=== PATIENT | female | born 1970 | race Caucasian/White ===

== ENCOUNTER 2018-09-22 14:01 | Observation (INO) | payer BC ==
--- NOTE | 2018-09-22 14:07 | PDOC ---
History of Present Illness - General Chief Complaint: Chest Pain Stated Complaint: Chest Pain Time Seen by Provider: 09/22/18 14:07 - History of Present Illness Initial Comments: 09/22/18 14:17 Ms. Sharma is a 48 yo female w/ no significant pmh who presents for evaluation of 24 hour history of chest pain severely worsened today. Patient reports it is midline and worsened with deep inspiration. Patient also reports a 1 month history of dry cough however denies any fever, chills, or other associated symptoms. Pain is radiating to her back. The patient denies shortness of breath, headache and dizziness. Denies fever, chills, nausea, vomit, diarrhea and constipation. Denies dysuria, frequency, urgency and hematuria. Past History - Past Medical History Allergies/Adverse Reactions: Allergies Allergy/AdvReac Type Severity Reaction Status Date / Time No Known Allergies Allergy Verified 09/22/18 14:07 Home Medications: Ambulatory Orders NK [No Known Home Medication] 09/22/18 Review of Systems - Review of Systems Comments:: 09/22/18 14:19 GENERAL/CONSTITUTIONAL: No fever or chills. No weakness. HEAD, EYES, EARS, NOSE AND THROAT: No change in vision. No ear pain or discharge. No sore throat. CARDIOVASCULAR: Pain as described. No shortness of breath RESPIRATORY: No cough, wheezing, or hemoptysis. GASTROINTESTINAL: No nausea, vomiting, diarrhea or constipation. GENITOURINARY: No dysuria, frequency, or change in urination. MUSCULOSKELETAL: No joint or muscle swelling or pain. No neck or back pain. SKIN: No rash NEUROLOGIC: No headache, vertigo, loss of consciousness, or change in strength/ sensation. ENDOCRINE: No increased thirst. No abnormal weight change HEMATOLOGIC/LYMPHATIC: No anemia, easy bleeding, or history of blood clots. ALLERGIC/IMMUNOLOGIC: No hives or skin allergy. *Physical Exam - Physical Exam Comments: 09/22/18 14:20 GENERAL: Awake, alert, and fully oriented, in no acute distress HEAD: No signs of trauma, normocephalic, atraumatic EYES: PERRLA, EOMI, sclera anicteric, conjunctiva clear ENT: Auricles normal inspection, hearing grossly normal, nares patent, oropharynx clear without exudates. Moist mucosa NECK: Normal ROM, supple, no lymphadenopathy, JVD, or masses LUNGS: No distress, speaks full sentences, clear to auscultation bilaterally HEART: Regular rate and rhythm, normal S1 and S2, no murmurs, rubs or gallops, peripheral pulses normal and equal bilaterally. ABDOMEN: Soft, nontender, normoactive bowel sounds. No guarding, no rebound. No masses EXTREMITIES: Normal inspection, Normal range of motion, no edema. No clubbing or cyanosis. NEUROLOGICAL: Cranial nerves II through XII grossly intact. Normal speech, normal gait, no focal sensorimotor deficits SKIN: Warm, Dry, normal turgor, no rashes or lesions noted. Heart Score/ECG Review - History History: Highly suspicious - Electrocardiogram EKG: Non specific repolarization disturbance - Age Age: 45-65 - Risk Factors Based on the list above the patient has:: No risk factors known - Troponin Troponin: </= normal limit - Score Heart Score - Total: 4 ED Treatment Course - LABORATORY CBC & Chemistry Diagram: 09/22/18 14:35 09/22/18 14:35 Medical Decision Making - Medical Decision Making 09/22/18 16:23 Ms. Sharma is a 48 yo female w/ pmh as described who presents for evaluation of symptoms of chest pain concerning for ACS vs. PE vs. MSK pain. Patient evaluated with cardiac labs. Bedside US revealed no acute process. Patient will be evaluated with Chest CTA for r/o PE given pleurisy and labs grossly wnl. ASA given prophylactically. 09/22/18 18:42 CT negative for PE or other acute process. EKG normal sinus w/ RBBB. Labs grossly wnl. 2nd troponin pending. Patient will be admitted for cardiac evaluation. Laboratory Results - last 24 hr 09/22/18 09/22/18 09/22/18 14:35 14:35 14:35 WBC 6.4 RBC 4.50 Hgb 9.5 L Hct 30.3 L MCV 67.3 L MCH 21.1 L MCHC 31.4 L RDW 19.7 H Plt Count 318 MPV 9.5 Absolute Neuts (auto) 4.5 Neutrophils % 70.6 Lymphocytes % 21.1 Monocytes % 5.3 Eosinophils % 2.6 Basophils % 0.4 Nucleated RBC % 0 PT with INR 11.10 INR 0.94 PTT (Actin FS) 29.5 Sodium 142 Potassium 4.3 Chloride 109 H Carbon Dioxide 26 Anion Gap 7 L BUN 13 Creatinine 0.6 Creat Clearance w eGFR 105.82 Random Glucose 105 Calcium 8.8 Total Bilirubin 0.2 AST 17 ALT 20 Alkaline Phosphatase 113 Creatine Kinase 117 Troponin I < 0.02 Total Protein 6.9 Albumin 3.3 L Blood Type Antibody Screen 09/22/18 15:01 WBC RBC Hgb Hct MCV MCH MCHC RDW Plt Count MPV Absolute Neuts (auto) Neutrophils % Lymphocytes % Monocytes % Eosinophils % Basophils % Nucleated RBC % PT with INR INR PTT (Actin FS) Sodium Potassium Chloride Carbon Dioxide Anion Gap BUN Creatinine Creat Clearance w eGFR Random Glucose Calcium Total Bilirubin AST ALT Alkaline Phosphatase Creatine Kinase Troponin I Total Protein Albumin Blood Type A POSITIVE Antibody Screen Negative *DC/Admit/Observation/Transfer Diagnosis at time of Disposition: Chest pain Qualifiers: Chest pain type: unspecified Qualified Code(s): R07.9 - Chest pain, unspecified - Discharge Dispostion Decision to Admit order: Yes - Referrals Referrals: Maria Dolores Alcaraz [Primary Care Provider] - - Patient Instructions - Post Discharge Activity Forms/Work/School Notes: Back to Work
[2018-09-22 14:08] VITALS: BMI 32.5
[2018-09-22] MEDS ORDERED: ASPIRIN 81 MG CHEWABLE TABLETS PO ONE (14:46)
[2018-09-22] MEDS ORDERED: ASPIRIN 81 MG CHEWABLE TABLETS ONE (14:48)
[2018-09-22 14:49] LABS: BASO % 0.4 % (0-2.0); EOS % 2.6 % (0-4.5); HEMATOCRIT 30.3 % (32.4-45.2); HEMOGLOBIN 9.5 GM/dL (10.7-15.3); LYMPH % 21.1 % (8-40); MCH 21.1 pg (25.7-33.7); MCHC 31.4 g/dl (32.0-36.0); MEAN CELL VOLUME 67.3 fl (80-96); MEAN PLT VOLUME 9.5 fl (7.5-11.1); MONO % 5.3 % (3.8-10.2); NEUT % 70.6 % (42.8-82.8); PLATELET COUNT 318 K/MM3 (134-434); RDW 19.7 % (11.6-15.6); WHITE BLOOD COUNT 6.4 K/mm3 (4.0-10.0)
[2018-09-22 15:07] LABS: INR 0.94 (0.83-1.09); PROTHROMBIN TIME (PATIENT) 11.1 SEC (9.7-13.0)
[2018-09-22 15:10] LABS: ACTIVATED PTT 29.5 SECONDS (25.2-36.5)
[2018-09-22 15:18] LABS: ALBUMIN 3.3 g/dl (3.4-5.0); ALK PHOS 113 U/L (45-117); ANION GAP 7 MMOL/L (8-16); BILIRUBIN,TOTAL 0.2 mg/dL (0.2-1); BLOOD UREA NITROGEN 13 mg/dL (7-18); CALCIUM 8.8 mg/dL (8.5-10.1); CHLORIDE 109 mmol/L (98-107); CO2 26 mmol/L (21-32); CREATININE 0.6 mg/dL (0.55-1.3); GLUCOSE,RANDOM 105 mg/dL (74-106); POTASSIUM 4.3 mmol/L (3.5-5.1); SGOT/AST 17 U/L (15-37); SGPT/ALT 20 U/L (13-61); SODIUM 142 mmol/L (136-145); TOT PROT 6.9 g/dl (6.4-8.2)
--- NOTE | 2018-09-22 15:50 | PDOC ---
Documentation entered by Ольга Snyder SCRIBE, acting as scribe for Bella Rosas MD. Bella Rosas MD: This documentation has been prepared by the Claudio aguayo Sammi, SCRIBE, under my direction and personally reviewed by me in its entirety. I confirm that the documentation accurately reflects all work, treatment, procedures, and medical decision making performed by me. Attending Attestation - Resident Resident Name: JinnyAlea - ED Attending Attestation I have performed the following: I have examined & evaluated the patient, The case was reviewed & discussed with the resident, I agree w/resident's findings & plan, Exceptions are as noted - HPI HPI: 09/22/18 14:27 48 yo F , no pmhx here with c/o midline pleuritic chest pain, radiating to her back, onset 1 day ago. did recently travel to [place] by car ([address] ) one week ago. Patient notes 1 month of nonproductive cough. no leg swelling. no calf pain. no h/ol pe or dvt. no family h/o mi. pt no prior h/o mi. states pain is worse with standing and walking. cough nonproductive. no n/v no other complaints. The patient denies shortness of breath, headache and dizziness. Denies fever, chills, nausea, vomit, diarrhea and constipation. Allergies: NKA 09/22/18 15:17 09/22/18 15:45 - Physicial Exam PE: 09/22/18 14:50 awake alert lungs clear bilaterally chest wall no reproducible pain. heart rrr no mrg abd soft nt nd ext wwp.no leg swelling. no calf tenderness. no edema. 2 + dp / pt pulses bilaterally. 09/22/18 15:46 - Medical Decision Making 09/22/18 15 48 yo F here with pleuritic chest pain. differential pe, pericarditis, acs, pna , effusion. plan cta chest, focused ED TTE, cxr labs ekg troponin ekg with rbb, old ekg visualized in MUSE, no acute changes. comparison 07/2016 focused ED TTE, indication pleuritic chest pain. eval rv strain dilation, pericardial effusion heart visualized in four views, parasternal long and short, apical, subxiphoid. no rv dilation or strain. contractility normal , no pericardial effusion. impression: normal TTE. 09/22/18 15:46 Heart Score/ECG Review #1 General ECG Interpretation: Sinus Rhythm, Normal Rate (74), Normal Intervals, No acute ischemic changes Compared to previous ECG there are: No significant change (comparison 07/06/2016 . RBBB, TWI II only . no acute changes)
[2018-09-22 17:08] LABS: ANISOCYTOSIS 1+; MACROCYTOSIS 1+
[2018-09-22 17:11] LABS: PLATELET ESTIMATE ADEQUATE
--- NOTE | 2018-09-22 19:42 | PN ---
Teaching Attending Note Name of Resident: Avery Hoang ATTENDING PHYSICIAN STATEMENT I saw and evaluated the patient. I reviewed the resident's note and discussed the case with the resident. I agree with the resident's findings and plan as documented. SUBJECTIVE: Seen and examined; please refer to resident note for further historical informaiton. 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 She is found to have a RBBB on EKG and is CP free when I saw her in the ER. Negative initial troponin. She denies chronic medical issues or taking any Rx medications. Not on ASA. 10 sys ROS done and negative aside from HPI PMH, PSH, FH, SH reviewed Home Medications Medication Instructions Recorded NK [No Known Home Medication] 09/22/18 OBJECTIVE: VS, labs, imaging reviewed NAD, AAO, resting comfortably in bed NC AT EOMI PERRLA RRR s1/2 no mgr Lungs CTAB, w/ sym exp NT ND +BS CN2-12 wnl, no fnd Normal mood, appropriate behavior EKG reviewed; RBBB no ST elevations, etc. CXR reviewed; final report pending ASSESSMENT AND PLAN: Patient presents with chest pain; she has had a negative stress >1 year ago 1) Chest Pain in Adult -R-sided radiating to the back makes it not necessarily classical but can present atypically in female. Will r/o acs. Placing patient on telemetry and trending troponin. Consult CV to see if further stress test, etc. is warranted at this juncture. Would be helpful to obtain old records. -Check A1c, TSH, Lipids to further risk stratify 2) Obesity -Regional Sales Representative prior to DC 3) Microcytic anemia -Check iron studies; trend CBC 4) Low albumin -Check prealbumin
--- NOTE | 2018-09-22 20:03 | HP ---
CHIEF COMPLAINT: chest pain PCP: HISTORY OF PRESENT ILLNESS: Patient is a 48 y/o F w/ no known PMHx p/w sudden onset right-sided pressure- like chest pain radiating to her back, becoming progressively more severe to a peak of 10/10 severity. No previous similar episodes. No associated SOB, diaphoresis, nausea, vomiting. ROS otherwise negative. Pt had one prior visit to [facility] in 2017 which included a stress test which was negative. On presentation , vitals are stable, Pt is afebrile. Labs are unremarkable including negative troponins x 2. EKG shows RBBB of unknown chronicity and no acute ST changes. CXR and CTA chest were negative for acute pathology. Pt was given aspirin in the ED and pain improved. Recent Travel: PAST MEDICAL HISTORY: As per HPI PAST SURGICAL HISTORY: remote h/o CCY and appy Social History: Smoking:No Alcohol: No Drugs: No Family History: Allergies No Known Allergies Allergy (Verified 09/22/18 14:07) HOME MEDICATIONS: Home Medications Medication Instructions Recorded NK [No Known Home Medication] 09/22/18 REVIEW OF SYSTEMS PHYSICAL EXAMINATION Vital Signs - 24 hr 09/22/18 09/22/18 14:06 19:32 Temperature 99.2 F 98.7 F Pulse Rate 92 H Pulse Rate [ 80 Left Radial] Respiratory 16 20 Rate Blood Pressure 144/72 Blood Pressure 134/76 [Right Arm] O2 Sat by Pulse 100 Oximetry (%) GENERAL: A&Ox3, NAD HEENT: NC/AT, PERRLA, EOMI, MMM, anicteric NECK: Normal range of motion, supple without lymphadenopathy, JVD, or masses. LUNGS: CTA b/l HEART: RRR no m/r/g ABDOMEN: +bs, soft, NT, ND MUSCULOSKELETAL: Normal range of motion at all joints. No bony deformities or tenderness. No CVA tenderness. UPPER EXTREMITIES: 2+ pulses, warm, well-perfused. No cyanosis. No clubbing. No peripheral edema. LOWER EXTREMITIES: 2+ pulses, warm, well-perfused. No calf tenderness. No peripheral edema. NEUROLOGICAL: repair mechanic, motor, sensory systems w/o focal deficit PSYCHIATRIC: Cooperative. Good eye contact. Appropriate mood and affect. SKIN: Warm, dry, normal turgor, no rashes or lesions noted, normal capillary refill. Laboratory Results - last 24 hr 09/22/18 09/22/18 09/22/18 14:35 14:35 14:35 WBC 6.4 RBC 4.50 Hgb 9.5 L Hct 30.3 L MCV 67.3 L MCH 21.1 L MCHC 31.4 L RDW 19.7 H Plt Count 318 MPV 9.5 Absolute Neuts (auto) 4.5 Neutrophils % 70.6 Lymphocytes % 21.1 Monocytes % 5.3 Eosinophils % 2.6 Basophils % 0.4 Nucleated RBC % 0 Platelet Estimate Adequate Platelet Comment No clumping noted Anisocytosis 1+ Microcytosis 1+ Macrocytosis 1+ PT with INR 11.10 INR 0.94 PTT (Actin FS) 29.5 Sodium 142 Potassium 4.3 Chloride 109 H Carbon Dioxide 26 Anion Gap 7 L BUN 13 Creatinine 0.6 Creat Clearance w eGFR 105.82 Random Glucose 105 Calcium 8.8 Total Bilirubin 0.2 AST 17 ALT 20 Alkaline Phosphatase 113 Creatine Kinase 117 Troponin I < 0.02 Total Protein 6.9 Albumin 3.3 L Blood Type Antibody Screen 09/22/18 09/22/18 15:01 19:00 WBC RBC Hgb Hct MCV MCH MCHC RDW Plt Count MPV Absolute Neuts (auto) Neutrophils % Lymphocytes % Monocytes % Eosinophils % Basophils % Nucleated RBC % Platelet Estimate Platelet Comment Anisocytosis Microcytosis Macrocytosis PT with INR INR PTT (Actin FS) Sodium Potassium Chloride Carbon Dioxide Anion Gap BUN Creatinine Creat Clearance w eGFR Random Glucose Calcium Total Bilirubin AST ALT Alkaline Phosphatase Creatine Kinase Troponin I < 0.02 Total Protein Albumin Blood Type A POSITIVE Antibody Screen Negative ASSESSMENT/PLAN: 48 y/o F w/ no known PMHx p/w sudden onset right-sided pressure-like chest pain radiating to her back #A -r/o ACS -troponins negative x 2 -EKG w/ RBBB -symptomatic improvement on ASA #P -trend troponins -TSH -A1c -lipid panel -cardiology consulted -no IVF -follow BMP, Mg, Phos -regular diet -Lovenox for DVT PPx -full code -observe on telemetry Visit type - Emergency Visit Emergency Visit: Yes ED Registration Date: 09/22/18 Care time: The patient presented to the Emergency Department on the above date and was hospitalized for further evaluation of their emergent condition. - New Patient This patient is new to me today: Yes Date on this admission: 09/22/18 - Critical Care Critical Care patient: No
[2018-09-23 01:58] LABS: CHOLESTEROL 250 mg/dL (50-200); HDL CHOLESTEROL 68 mg/dL (40-60); TRIGLYCERIDES 137 mg/dL (0-150)
[2018-09-23 06:09] LABS: BASO % 0.6 % (0-2.0); EOS % 2.8 % (0-4.5); HEMOGLOBIN 9.9 GM/dL (10.7-15.3); LYMPH % 27.3 % (8-40); MCH 20.8 pg (25.7-33.7); MEAN PLT VOLUME 9.4 fl (7.5-11.1); MONO % 5.4 % (3.8-10.2); NEUT % 63.9 % (42.8-82.8); PLATELET COUNT 273 K/MM3 (134-434); RBC 4.77 M/mm3 (3.60-5.2); RDW 19.3 % (11.6-15.6); WHITE BLOOD COUNT 5.7 K/mm3 (4.0-10.0)
[2018-09-23 06:39] LABS: ANION GAP 6 MMOL/L (8-16); BLOOD UREA NITROGEN 16 mg/dL (7-18); CHLORIDE 106 mmol/L (98-107); CO2 26 mmol/L (21-32); CREATININE 0.6 mg/dL (0.55-1.3); GLUCOSE,RANDOM 94 mg/dL (74-106); MAGNESIUM 2.3 mg/dL (1.8-2.4); PHOSPHOROUS 4.7 mg/dL (2.5-4.9); POTASSIUM 4.5 mmol/L (3.5-5.1); SODIUM 138 mmol/L (136-145)
[2018-09-23 07:02] VITALS: TEMP 99.4
--- NOTE | 2018-09-23 08:55 | CON.CARD ---
Consult Consult Specialty:: Cardiology Referred by:: Hospitalist Medicine Reason for Consultation:: Chest pain - History of Present Illness Chief Complaint: Chest pain History of Present Illness: 48 y/o female presenting to the ER with non-exertional right sided chest pain radiating to back worsened with turning head and torso to right and raising arm , had a negative stress test >1 year ago, ruled out for [place] and PE, currently asymptomatic. She denies associated sxs of dyspnea, near or true syncope, palpitations, orthopnea, PND or LE edema. - History Source History Provided By: Patient Limitations to Obtaining History: No Limitations - Alcohol/Substance Use Hx Alcohol Use: No - Smoking History Smoking history: Never smoked Have you smoked in the past 12 months: No Home Medications - Allergies Allergies/Adverse Reactions: Allergies Allergy/AdvReac Type Severity Reaction Status Date / Time No Known Allergies Allergy Verified 09/22/18 14:07 - Home Medications Home Medications: Ambulatory Orders NK [No Known Home Medication] 09/22/18 Review of Systems - Review of Systems Cardiovascular: reports: Chest Pain Vital Signs: Vital Signs Temperature 99.4 F 09/23/18 07:00 Pulse Rate 71 09/23/18 07:00 Respiratory Rate 18 09/23/18 07:00 Blood Pressure 110/70 09/23/18 07:00 O2 Sat by Pulse Oximetry (%) 97 09/23/18 07:00 Constitutional: Yes: No Distress, Calm Neck: Yes: Supple Respiratory: Yes: Regular, CTA Bilaterally Gastrointestinal: Yes: Normal Bowel Sounds, Soft Cardiovascular: Yes: Regular Rate and Rhythm JVD: No Carotid Bruit: No Heart Sounds: Yes: S1, S2 Edema: No - Other Data Labs, Other Data: CBC, BMP 09/23/18 05:20 09/23/18 05:20 INR, PTT INR 0.94 (0.83-1.09) 09/22/18 14:35 Troponin, BNP 09/22/18 09/22/18 09/23/18 14:35 19:00 00:44 Troponin I < 0.02 < 0.02 < 0.02 Troponin, BNP 09/22/18 09/22/18 09/23/18 14:35 19:00 00:44 Troponin I < 0.02 < 0.02 < 0.02 NSR RBBB Imaging - Results Chest X-ray: Report Reviewed (NAD) Cat Scan: Report Reviewed (Chest CTA Neg for PE, + superior mediastinal mass ( LN vs thymus)) Problem List - Problems (1) Atypical chest pain Code(s): R07.89 - OTHER CHEST PAIN (2) Hyperlipidemia Code(s): E78.5 - HYPERLIPIDEMIA, UNSPECIFIED Qualifiers: Hyperlipidemia type: pure hypercholesterolemia Qualified Code(s): E78.00 - Pure hypercholesterolemia, unspecified; E78.0 - Pure hypercholesterolemia (3) Mediastinal mass Code(s): J98.59 - OTHER DISEASES OF MEDIASTINUM, NOT ELSEWHERE CLASSIFIED (4) Microcytic anemia Code(s): D50.9 - IRON DEFICIENCY ANEMIA, UNSPECIFIED Assessment/Plan 07/06/2016 ETTL No ischemia 1. Atypical chest pain worsened with turning torso and head 2. Hyperlipidemia 3. Mediastinal mass 4. Microcytic anemia 5. RBBB P:1. Ruled out for [place] and PE 2. F/u iron studies; trend CBC 3. May d/c home from [facility] 4. Thank you for consultative opportunity
--- NOTE | 2018-09-23 09:57 | EKG ---
Test Reason : Blood Pressure : / mmHG Vent. Rate : 074 BPM Atrial Rate : 074 BPM P-R Int : 144 ms QRS Dur : 124 ms QT Int : 372 ms P-R-T Axes : 059 016 010 degrees QTc Int : 412 ms NORMAL SINUS RHYTHM RIGHT BUNDLE BRANCH BLOCK ABNORMAL ECG NO PREVIOUS ECGS AVAILABLE Confirmed by ARTUR ROBLES MD ([id number]) on 09/23/2018 9:57:35 AM Referred By: Confirmed By:ARTUR ROBLES MD
[2018-09-23] MEDS ORDERED: ENOXAPARIN NA (PORCINE) 40 MG/0.4 ML DISP.SYRIN SQ SCH (10:00)
--- NOTE | 2018-09-23 12:00 | DS ---
Physical Exam: SUBJECTIVE: Patient seen and examined at bedside. Patient denies acute complaints. She endorses resolution of her chest pain. Denies subjective fevers , chills, shortness of breath, palpitations, abdominal pain, nausea, vomiting. OBJECTIVE: Vital Signs Period Temp Pulse Resp BP Sys/Blount Pulse Ox Last 24 Hr 98.4 F-99.4 F 71-92 16-20 110-144/70-78 95-100 PHYSICAL EXAM GENERAL: The patient is awake, alert, and fully oriented, in no acute distress. HEAD: Normal with no signs of trauma. EYES: PERRL, extraocular movements intact, sclera anicteric, conjunctiva clear. ENT: Ears normal, nares patent, oropharynx clear without exudates, moist mucous membranes. NECK: Trachea midline, full range of motion, supple. LUNGS: Breath sounds equal, clear to auscultation bilaterally, no wheezes, no crackles, no accessory muscle use. HEART: Regular rate and rhythm, S1, S2 without murmur, rub or gallop. ABDOMEN: Soft, nontender, nondistended, normoactive bowel sounds, no guarding, no rebound, no hepatosplenomegaly, no masses. EXTREMITIES: 2+ pulses, warm, well-perfused, no edema. NEUROLOGICAL: Cranial nerves II through XII grossly intact. Normal speech, gait not observed. PSYCH: Normal mood, normal affect. SKIN: Warm, dry, normal turgor, no rashes or lesions noted. LABS Laboratory Results - last 24 hr 09/22/18 09/22/18 09/22/18 14:35 14:35 14:35 WBC 6.4 RBC 4.50 Hgb 9.5 L Hct 30.3 L MCV 67.3 L MCH 21.1 L MCHC 31.4 L RDW 19.7 H Plt Count 318 MPV 9.5 Absolute Neuts (auto) 4.5 Neutrophils % 70.6 Lymphocytes % 21.1 Monocytes % 5.3 Eosinophils % 2.6 Basophils % 0.4 Nucleated RBC % 0 Platelet Estimate Adequate Platelet Comment No clumping noted Anisocytosis 1+ Microcytosis 1+ Macrocytosis 1+ Retic Count PT with INR 11.10 INR 0.94 PTT (Actin FS) 29.5 Sodium 142 Potassium 4.3 Chloride 109 H Carbon Dioxide 26 Anion Gap 7 L BUN 13 Creatinine 0.6 Creat Clearance w eGFR 105.82 Random Glucose 105 Hemoglobin A1c % Calcium 8.8 Phosphorus Magnesium Total Bilirubin 0.2 AST 17 ALT 20 Alkaline Phosphatase 113 Creatine Kinase 117 Troponin I < 0.02 Total Protein 6.9 Albumin 3.3 L Prealbumin Triglycerides Cholesterol Total LDL Cholesterol HDL Cholesterol TSH Blood Type Antibody Screen 09/22/18 09/22/18 09/22/18 15:01 19:00 21:10 WBC RBC Hgb Hct MCV MCH MCHC RDW Plt Count MPV Absolute Neuts (auto) Neutrophils % Lymphocytes % Monocytes % Eosinophils % Basophils % Nucleated RBC % Platelet Estimate Platelet Comment Anisocytosis Microcytosis Macrocytosis Retic Count PT with INR INR PTT (Actin FS) Sodium Potassium Chloride Carbon Dioxide Anion Gap BUN Creatinine Creat Clearance w eGFR Random Glucose Hemoglobin A1c % Calcium Phosphorus Magnesium Total Bilirubin AST ALT Alkaline Phosphatase Creatine Kinase Troponin I < 0.02 Total Protein Albumin Prealbumin Triglycerides Cholesterol Total LDL Cholesterol HDL Cholesterol TSH Blood Type A POSITIVE A POSITIVE Antibody Screen Negative 09/23/18 09/23/18 09/23/18 00:44 00:44 00:44 WBC RBC Hgb Hct MCV MCH MCHC RDW Plt Count MPV Absolute Neuts (auto) Neutrophils % Lymphocytes % Monocytes % Eosinophils % Basophils % Nucleated RBC % Platelet Estimate Platelet Comment Anisocytosis Microcytosis Macrocytosis Retic Count PT with INR INR PTT (Actin FS) Sodium Potassium Chloride Carbon Dioxide Anion Gap BUN Creatinine Creat Clearance w eGFR Random Glucose Hemoglobin A1c % Calcium Phosphorus Magnesium Total Bilirubin AST ALT Alkaline Phosphatase Creatine Kinase Troponin I < 0.02 Total Protein Albumin Prealbumin Triglycerides Cancelled 137 Cholesterol Cancelled 250 H Total LDL Cholesterol Cancelled 160 H HDL Cholesterol Cancelled 68 H TSH Cancelled 2.77 Blood Type Antibody Screen 09/23/18 09/23/18 09/23/18 05:20 05:20 05:20 WBC 5.7 RBC 4.77 Hgb 9.9 L Hct 32.0 L MCV 67.0 L MCH 20.8 L MCHC 31.0 L RDW 19.3 H Plt Count 273 MPV 9.4 Absolute Neuts (auto) 3.6 Neutrophils % 63.9 Lymphocytes % 27.3 D Monocytes % 5.4 Eosinophils % 2.8 Basophils % 0.6 Nucleated RBC % 0 Platelet Estimate Platelet Comment Anisocytosis Microcytosis Macrocytosis Retic Count PT with INR INR PTT (Actin FS) Sodium 138 Potassium 4.5 Chloride 106 Carbon Dioxide 26 Anion Gap 6 L BUN 16 Creatinine 0.6 Creat Clearance w eGFR 105.82 Random Glucose 94 Hemoglobin A1c % 5.7 Calcium 9.0 Phosphorus 4.7 Magnesium 2.3 Total Bilirubin AST ALT Alkaline Phosphatase Creatine Kinase Troponin I Total Protein Albumin Prealbumin Triglycerides Cholesterol Total LDL Cholesterol HDL Cholesterol TSH Blood Type Antibody Screen 09/23/18 09/23/18 09:05 09:05 WBC RBC Hgb Hct MCV MCH MCHC RDW Plt Count MPV Absolute Neuts (auto) Neutrophils % Lymphocytes % Monocytes % Eosinophils % Basophils % Nucleated RBC % Platelet Estimate Platelet Comment Anisocytosis Microcytosis Macrocytosis Retic Count 1.01 PT with INR INR PTT (Actin FS) Sodium Potassium Chloride Carbon Dioxide Anion Gap BUN Creatinine Creat Clearance w eGFR Random Glucose Hemoglobin A1c % Calcium Phosphorus Magnesium Total Bilirubin AST ALT Alkaline Phosphatase Creatine Kinase Troponin I Total Protein Albumin Prealbumin 27.8 Triglycerides Cholesterol Total LDL Cholesterol HDL Cholesterol TSH Blood Type Antibody Screen HOSPITAL COURSE: Date of Admission:09/22/18 Date of Discharge: 09/23/18 Patient is a 48 year old female with no significant medical history presented with complaint of chest pain. Troponin 0.02 x3. EKG showed RBBB unchanged from 2017. Patient endorsed that pain was provoked with movement. Patient was evaluated by cardiology who discussed likely musculoskeletal etiology of chest pain. Patient's chest pain resolved, and patient discharged home to follow up with primary care physician. Minutes to complete discharge: 32 Discharge Summary Reason For Visit: CHEST PAIN Current Active Problems Atypical chest pain (Acute) Chest pain (Acute) Hyperlipidemia (Acute) Mediastinal mass (Acute) Microcytic anemia (Acute) Condition: Stable - Instructions Diet, Activity, Other Instructions: You were admitted to the hospital with chest pain. You were evaluated by the continuous improvement manager, and your pain is likely not related to your heart, but rather it is likely a muscular pain. You are being discharged home. Your cholesterol was found to be high during this admission. You will need to see your primary care physician in order to be provided guidance. Further, you had iron studies performed for anemia, and will follow them up at your primary care physician appointment. Your CT scan showed a small nodule, which you will follow up with your primary care physician. Follow up with your primary care physician within two- three days after discharge. A referral to [facility] has been provided. Return to the nearest Emergency Department if you experience any worsening symptoms, subjective fevers, chills, shortness of breath, chest pain, palpitations, abdominal pain, nausea, vomiting. Referrals: [facility] [place] [Provider Group] - 09/24/18 Disposition: HOME - Home Medications Comprehensive Discharge Medication List: Ambulatory Orders NK [No Known Home Medication] 09/22/18 This patient is new to me today: Yes Date on this admission: 09/23/18 Emergency Visit: Yes ED Registration Date: 09/22/18 Care time: The patient presented to the Emergency Department on the above date and was hospitalized for further evaluation of their emergent condition. Critical Care patient: No - Discharge Referral Referred to [facility] Med P.C.: No
--- NOTE | 2018-09-23 12:05 | PN ---
Teaching Attending Note Name of Resident: Chito Almanza ATTENDING PHYSICIAN STATEMENT I saw and evaluated the patient. I reviewed the resident's note and discussed the case with the resident. I agree with the resident's findings and plan as documented. SUBJECTIVE: Chest pain has resolved. No new complaints. OBJECTIVE: Vital Signs Period Temp Pulse Resp BP Sys/Blount Pulse Ox Last 24 Hr 98.4 F-99.4 F 71-92 16-20 110-144/70-78 95-100 CHEST: No tenderness to palpation HEART: S1S2, RRR LUNGS: Clear ABDOMEN: Obese, soft, non-tender, non-distended, normal BS EXTREMITIES: No edema Laboratory Results - last 24 hr 09/22/18 09/22/18 09/22/18 14:35 14:35 14:35 WBC 6.4 RBC 4.50 Hgb 9.5 L Hct 30.3 L MCV 67.3 L MCH 21.1 L MCHC 31.4 L RDW 19.7 H Plt Count 318 MPV 9.5 Absolute Neuts (auto) 4.5 Neutrophils % 70.6 Lymphocytes % 21.1 Monocytes % 5.3 Eosinophils % 2.6 Basophils % 0.4 Nucleated RBC % 0 Platelet Estimate Adequate Platelet Comment No clumping noted Anisocytosis 1+ Microcytosis 1+ Macrocytosis 1+ Retic Count PT with INR 11.10 INR 0.94 PTT (Actin FS) 29.5 Sodium 142 Potassium 4.3 Chloride 109 H Carbon Dioxide 26 Anion Gap 7 L BUN 13 Creatinine 0.6 Creat Clearance w eGFR 105.82 Random Glucose 105 Hemoglobin A1c % Calcium 8.8 Phosphorus Magnesium Total Bilirubin 0.2 AST 17 ALT 20 Alkaline Phosphatase 113 Creatine Kinase 117 Troponin I < 0.02 Total Protein 6.9 Albumin 3.3 L Prealbumin Triglycerides Cholesterol Total LDL Cholesterol HDL Cholesterol TSH Blood Type Antibody Screen 09/22/18 09/22/18 09/22/18 15:01 19:00 21:10 WBC RBC Hgb Hct MCV MCH MCHC RDW Plt Count MPV Absolute Neuts (auto) Neutrophils % Lymphocytes % Monocytes % Eosinophils % Basophils % Nucleated RBC % Platelet Estimate Platelet Comment Anisocytosis Microcytosis Macrocytosis Retic Count PT with INR INR PTT (Actin FS) Sodium Potassium Chloride Carbon Dioxide Anion Gap BUN Creatinine Creat Clearance w eGFR Random Glucose Hemoglobin A1c % Calcium Phosphorus Magnesium Total Bilirubin AST ALT Alkaline Phosphatase Creatine Kinase Troponin I < 0.02 Total Protein Albumin Prealbumin Triglycerides Cholesterol Total LDL Cholesterol HDL Cholesterol TSH Blood Type A POSITIVE A POSITIVE Antibody Screen Negative 09/23/18 09/23/18 09/23/18 00:44 00:44 00:44 WBC RBC Hgb Hct MCV MCH MCHC RDW Plt Count MPV Absolute Neuts (auto) Neutrophils % Lymphocytes % Monocytes % Eosinophils % Basophils % Nucleated RBC % Platelet Estimate Platelet Comment Anisocytosis Microcytosis Macrocytosis Retic Count PT with INR INR PTT (Actin FS) Sodium Potassium Chloride Carbon Dioxide Anion Gap BUN Creatinine Creat Clearance w eGFR Random Glucose Hemoglobin A1c % Calcium Phosphorus Magnesium Total Bilirubin AST ALT Alkaline Phosphatase Creatine Kinase Troponin I < 0.02 Total Protein Albumin Prealbumin Triglycerides Cancelled 137 Cholesterol Cancelled 250 H Total LDL Cholesterol Cancelled 160 H HDL Cholesterol Cancelled 68 H TSH Cancelled 2.77 Blood Type Antibody Screen 09/23/18 09/23/18 09/23/18 05:20 05:20 05:20 WBC 5.7 RBC 4.77 Hgb 9.9 L Hct 32.0 L MCV 67.0 L MCH 20.8 L MCHC 31.0 L RDW 19.3 H Plt Count 273 MPV 9.4 Absolute Neuts (auto) 3.6 Neutrophils % 63.9 Lymphocytes % 27.3 D Monocytes % 5.4 Eosinophils % 2.8 Basophils % 0.6 Nucleated RBC % 0 Platelet Estimate Platelet Comment Anisocytosis Microcytosis Macrocytosis Retic Count PT with INR INR PTT (Actin FS) Sodium 138 Potassium 4.5 Chloride 106 Carbon Dioxide 26 Anion Gap 6 L BUN 16 Creatinine 0.6 Creat Clearance w eGFR 105.82 Random Glucose 94 Hemoglobin A1c % 5.7 Calcium 9.0 Phosphorus 4.7 Magnesium 2.3 Total Bilirubin AST ALT Alkaline Phosphatase Creatine Kinase Troponin I Total Protein Albumin Prealbumin Triglycerides Cholesterol Total LDL Cholesterol HDL Cholesterol TSH Blood Type Antibody Screen 09/23/18 09/23/18 09:05 09:05 WBC RBC Hgb Hct MCV MCH MCHC RDW Plt Count MPV Absolute Neuts (auto) Neutrophils % Lymphocytes % Monocytes % Eosinophils % Basophils % Nucleated RBC % Platelet Estimate Platelet Comment Anisocytosis Microcytosis Macrocytosis Retic Count 1.01 PT with INR INR PTT (Actin FS) Sodium Potassium Chloride Carbon Dioxide Anion Gap BUN Creatinine Creat Clearance w eGFR Random Glucose Hemoglobin A1c % Calcium Phosphorus Magnesium Total Bilirubin AST ALT Alkaline Phosphatase Creatine Kinase Troponin I Total Protein Albumin Prealbumin 27.8 Triglycerides Cholesterol Total LDL Cholesterol HDL Cholesterol TSH Blood Type Antibody Screen Current Medications Generic Name Dose Route Start Last Admin Trade Name Freq PRN Reason Stop Dose Admin Enoxaparin Sodium 40 mg 09/23/18 10:00 Lovenox - SQ DAILY [facility] ASSESSMENT AND PLAN: This is a 48 year old woman with no significant past medical history who presented to the ED with sudden onset of right sided chest pressure. 1. Atypical chest pain - Resolved - Likely musculoskeletal - Troponin negative x 3 2. Hyperlipidemia - Low fat/cholesterol diet, exercise, weight loss - Outpatient follow-up 3. Anemia, microcytic - Outpatient work-up 4. Obesity with BMI 32.6 5. Disposition - Ok for discharge home
[2018-09-23 12:37] VITALS: BP 109/70; PULSE 83
== END 2018-09-23 12:40 | disposition home or self-care (01) ==
LOC: JER 14:01 → JERBED 18:46
PROVIDERS: ADMIT Internal Medicine; ATTEND Internal Medicine
DX: R07.89 Other chest pain (principal); D50.9 Iron deficiency anemia, unspecified; R77.0 Abnormality of albumin; E78.5 Hyperlipidemia, unspecified; J98.59 Other diseases of mediastinum, not elsewhere classified; E66.9 Obesity, unspecified; Z68.37 Body mass index [BMI] 37.0-37.9, adult
CPT/HCPCS: 36415; 71045-TC-FY; 71275-TC; 80048; 80053; 80061; 82550; 83036; 83540; 83721; 83735; 84100; 84134; 84443; 84466; 84484; 85025; 85044; 85610; 85730; 86850; 86900; 86901; 93005; 93010; 99284-25; G0378

== ENCOUNTER → 2020-09-13 | Day surgery (SDC) | payer BC | END | disposition home or self-care (01) | LOC: JRADIR 09:36 | PROVIDERS: ATTEND Family Medicine | PROC: 0G9G3ZX Drainage of Left Thyroid Gland Lobe, Percutaneous Approach, Diagnostic (ICD-10-PCS; principal; 2020-09-13) | DX: E04.1 Nontoxic single thyroid nodule (principal) | CPT/HCPCS: 10005; 76942 ==